=== PATIENT | male | born 1985 | race African-American/Black ===

== ENCOUNTER 2017-10-15 10:08 | Emergency (ER) | payer OTHER ==
[~2017-10-15] VITALS: Ht 180.3 cm; Wt 79.0 kg
[2017-10-15] MEDS ORDERED: NORCO (10:38)
[2017-10-15] MEDS ORDERED: SODIUM CHLORIDE 0.9% 1,000 ML IV ONE (12:18)
[2017-10-15] MEDS ORDERED: MORPHINE SULFATE 4 MG/ML CPJ (NOT FOR IM USE) IV STA (12:18)
[2017-10-15] MEDS ORDERED: FAMOTIDINE 20MG/2ML VIAL IV STA (12:18)
[2017-10-15 12:59] LABS: BASOPHILS % 0.4 % (0.0-2.0); EOSINOPHILS % 0.4 % (0.0-5.0); HEMATOCRIT. 41.6 % (42.0-52.0); LYMPHOCYTES % 19.2 % (20.0-50.0); MEAN CORPUSCULAR HEMOGLOBIN 32.7 pg (28.0-32.0); MEAN CORPUSCULAR VOLUME 96.9 fL (80.0-94.0); MEAN PLATELET VOLUME 9.2 fl (7.4-10.4); PLATELET 340 x1000/uL (130-400); RED BLOOD CELL COUNT 4.29 mill/uL (4.7-6.1); RED CELL DISTRIBUTION WIDTH 11.8 % (11.6-14.6)
[2017-10-15 13:00] VITALS: BP 167/100
[2017-10-15 13:06] LABS: CHLORIDE 103 mEq/L (98-107)
[2017-10-15 13:14] LABS: CARBON DIOXIDE 30 mEq/L (21-32)
[2017-10-15] MEDS ORDERED: ONDANSETRON HCL 4MG/2ML VIAL IV ONE (14:30)
== END 2017-10-15 16:39 | disposition home or self-care (01) ==
LOC: ER 11:02
DX: K76.0 Fatty (change of) liver, not elsewhere classified (principal); A60.00 Herpesviral infection of urogenital system, unspecified; R74.0 Nonspecific elevation of levels of transaminase and lactic acid dehydrogenase [LDH]; K85.90 Acute pancreatitis without necrosis or infection, unspecified; F10.10 Alcohol abuse, uncomplicated; Y90.9 Presence of alcohol in blood, level not specified
CPT/HCPCS: 36415; 76705; 80053; 83690; 85025; 96361; 96374; 96375; 99285; J2270; J2405; J3490; J7030

== ENCOUNTER 2018-12-10 08:18 | Inpatient (IN) | payer MEDICAID, OTHER ==
[~2018-12-10] VITALS: Ht 180.3 cm; Wt 76.2 kg
[2018-12-10] MEDS ORDERED: SODIUM CHLORIDE 0.9% 1,000 ML IV ONE (08:58)
[2018-12-10] MEDS ORDERED: KETOROLAC 30MG/ML VIAL IV STA (08:58)
[2018-12-10] MEDS ORDERED: ONDANSETRON HCL 4MG/2ML INJ IV STA (08:58)
[2018-12-10 09:38] LABS: CLARITY URINE CLEAR (CLEAR); COLOR URINE YELLOW (YELLOW); KETONES URINE NEGATIVE (NEGATIVE); LEUKOCYTE ESTERASE URINE NEGATIVE (NEGATIVE); NITRITE URINE NEGATIVE (NEGATIVE); OCCULT BLOOD URINE NEGATIVE (NEGATIVE); PH URINE 7.5 (4.5-8.0); PROTEIN URINE NEGATIVE (NEGATIVE); SPECIFIC GRAVITY URINE 1.012 (1.005-1.030); UROBILINOGEN URINE 0.2 E.U./dL (0.2-1.0)
[2018-12-10 09:39] LABS: BASOPHILS % 1.1 % (0.0-2.0); EOSINOPHILS % 6.3 % (0.0-5.0); HEMATOCRIT. 39.9 % (42.0-52.0); HEMOGLOBIN. 13.5 g/dL (14.0-18.0); LYMPHOCYTES % 32.9 % (20.0-50.0); MEAN CORPUSCULAR VOLUME 97.4 fL (80.0-94.0); MEAN PLATELET VOLUME 9.6 fl (7.4-10.4); MONOCYTES % 7.1 % (2.0-8.0); NEUTROPHILS % 52.6 % (40.0-76.0); PLATELET 278 x1000/uL (130-400); RED BLOOD CELL COUNT 4.09 mill/uL (4.7-6.1); RED CELL DISTRIBUTION WIDTH 11.9 % (11.6-14.6)
[2018-12-10 09:44] LABS: CHLORIDE 107 mEq/L (98-107)
[2018-12-10 09:47] LABS: ETHANOL BLOOD 76 mg/dL
[2018-12-10] MEDS ORDERED: IBUPROFEN 600MG TABLET PO PRN (11:00)
[2018-12-10 14:00] VITALS: BP 151/97
[2018-12-10] MEDS ORDERED: CLONIDINE 0.1MG TABLET PO PRN (15:45)
[2018-12-10] MEDS ORDERED: DOCUSATE SODIUM 100MG CAPSULE PO PRN (15:45)
[2018-12-10] MEDS ORDERED: ACETAMINOPHEN 325MG TABLET PO PRN (15:45)
[2018-12-10] MEDS ORDERED: ZOLPIDEM TARTRATE 5MG TABLET PO PRN (15:45)
[2018-12-10] MEDS ORDERED: IPRATROPIUM/ALBUTEROL 0.5-3(2.5)MG/3ML NEB INH PRN (15:45)
[2018-12-10] MEDS ORDERED: NITROGLYCERIN 0.4MG TABLET SL SL PRN (15:45)
[2018-12-10] MEDS ORDERED: LORAZEPAM 0.5MG TABLET PO PRN (15:45)
[2018-12-10] MEDS ORDERED: ONDANSETRON HCL 4MG/2ML INJ IV PRN (15:45)
[2018-12-10] MEDS ORDERED: GUAIFENESIN 200MG/10ML SUGAR FREE UDC PO PRN (15:45)
[2018-12-10] MEDS ORDERED: MAGNESIUM/ALUMINUM HYDROXIDE/SIMETHICONE 30ML UDC PO PRN (15:45)
[2018-12-10] MEDS ORDERED: SODIUM CHLORIDE 0.9% 1,000 ML IV SCH (16:05)
[2018-12-10] MEDS ORDERED: KCL 20MEQ/100ML PREMIX 100 ML IV NR (16:30)
[2018-12-10] MEDS ORDERED: MVI, ADULT NO.1 10 ML, FOLIC ACID 1 MG, THIAMINE HCL 100 MG in SODIUM CHLORIDE 0.9% 1,0... IV SCH ×4 (17:00)
[2018-12-10] MEDS: KETOROLAC 15MG/ML VIAL IV PRN ×2 (17:02→23:37)
[2018-12-10 20:15] VITALS: BP 143/99
[2018-12-10] MEDS: METOPROLOL TARTRATE 25MG TABLET PO SCH (21:25)
[2018-12-10 22:57] LABS: *AMPHETAMINES SCREEN URINE NEGATIVE (NEGATIVE)
[2018-12-10 22:58] LABS: *BARBITURATES SCREEN URINE NEGATIVE (NEGATIVE); *BENZODIAZEPINES SCREEN URINE PRESUMTIVE POSITIVE (NEGATIVE); *COCAINE SCREEN URINE NEGATIVE (NEGATIVE); METHADONE URINE SCREEN NEGATIVE (NEGATIVE); OPIATES URINE SCREEN NEGATIVE (NEGATIVE); PHENCYCLIDINE URINE SCREEN NEGATIVE (NEGATIVE)
[2018-12-10 22:59] LABS: CANNABINOID URINE SCREEN NEGATIVE (NEGATIVE)
[2018-12-11 04:00] VITALS: BP 140/85
[2018-12-11] MEDS: KETOROLAC 15MG/ML VIAL IV PRN ×2 (05:41→12:17)
[2018-12-11 07:46] LABS: BASOPHILS % 0.5 % (0.0-2.0); EOSINOPHILS % 5.6 % (0.0-5.0); HEMATOCRIT. 36.7 % (42.0-52.0); HEMOGLOBIN. 12.4 g/dL (14.0-18.0); LYMPHOCYTES % 24.9 % (20.0-50.0); MEAN CORPUSCULAR VOLUME 97.9 fL (80.0-94.0); MEAN PLATELET VOLUME 9.9 fl (7.4-10.4); MONOCYTES % 5.7 % (2.0-8.0); NEUTROPHILS % 63.3 % (40.0-76.0); PLATELET 257 x1000/uL (130-400); RED BLOOD CELL COUNT 3.75 mill/uL (4.7-6.1); RED CELL DISTRIBUTION WIDTH 11.9 % (11.6-14.6)
[2018-12-11 08:00] VITALS: BP 146/95
[2018-12-11 08:08] LABS: CHLORIDE 108 mEq/L (98-107)
[2018-12-11 08:14] LABS: AMYLASE 115 IU/L (25-115)
[2018-12-11] MEDS: METOPROLOL TARTRATE 25MG TABLET PO SCH (08:55)
[2018-12-11] MEDS ORDERED: PANTOPRAZOLE SODIUM 40 MG/VIAL IV SCH (09:00)
[2018-12-11 12:00] VITALS: BP 144/96
[2018-12-11 13:58] VITALS: BP 144/96
== END 2018-12-11 14:30 | disposition home or self-care (01) | DRG 282 ==
LOC: ER 08:18 → 6EST 11:02 → EDBEDREQ 11:09 → ENRESERV 11:38
PROVIDERS: ADMIT Internal Medicine; ATTEND Internal Medicine
DX: K85.20 Alcohol induced acute pancreatitis without necrosis or infection (principal); D64.9 Anemia, unspecified; E87.6 Hypokalemia; F10.20 Alcohol dependence, uncomplicated; I10 Essential (primary) hypertension
CPT/HCPCS: 36415; 76700; 80305; 80320; 82150; 93005; 96361; 96374; 96375; 99285; C9113; J1885; J2405; J3411; J3480; J3490; J7030; G0480

== ENCOUNTER 2019-02-24 16:24 | Emergency (ER) | payer MEDICAID ==
[~2019-02-24] VITALS: Ht 180.3 cm; Wt 75.0 kg
[2019-02-24] MEDS ORDERED: SODIUM CHLORIDE 0.9% 1,000 ML IV ONE (21:48)
[2019-02-24] MEDS ORDERED: MORPHINE SULFATE 4 MG/ML CPJ (NOT FOR IM USE) IV STA (21:48)
[2019-02-24] MEDS ORDERED: ONDANSETRON HCL 4MG/2ML INJ IV STA (21:48)
[2019-02-24] MEDS ORDERED: KETOROLAC 30MG/ML VIAL IV STA (21:48)
[2019-02-24 22:49] LABS: CHLORIDE 105 mEq/L (98-107); EOSINOPHILS % 2.6 % (0.0-5.0); HEMATOCRIT. 37.3 % (42.0-52.0); HEMOGLOBIN. 12.7 g/dL (14.0-18.0); LYMPHOCYTES % 33.9 % (20.0-50.0); MEAN CORPUSCULAR HEMOGLOBIN 32.6 pg (28.0-32.0); MEAN CORPUSCULAR VOLUME 95.9 fL (80.0-94.0); MEAN PLATELET VOLUME 9.2 fl (7.4-10.4); MONOCYTES % 6.5 % (2.0-8.0); PLATELET 285 x1000/uL (130-400); RED BLOOD CELL COUNT 3.89 mill/uL (4.7-6.1)
[2019-02-25] MEDS ORDERED: FENTANYL CITRATE/PF 50MCG/ML 2ML VIAL IV ONE (00:45)
[2019-02-25] MEDS ORDERED: CLONIDINE 0.2MG TABLET PO ONE (00:45)
[2019-02-25 04:22] VITALS: BP 131/88
== END 2019-02-25 04:22 | disposition home or self-care (01) ==
LOC: ER 16:24
DX: K52.9 Noninfective gastroenteritis and colitis, unspecified (principal); I10 Essential (primary) hypertension
CPT/HCPCS: 36415; 80053; 83690; 85025; 96361; 96374; 96375; 99283; J1885; J2270; J2405; J3010; J7030; Z7610

== ENCOUNTER 2019-04-09 16:15 | Emergency (ER) | payer MEDICAID ==
[~2019-04-09] VITALS: Ht 180.3 cm; Wt 74.0 kg
[2019-04-09] MEDS ORDERED: ONDANSETRON HCL 4MG/2ML INJ IV STA (23:05)
[2019-04-09] MEDS ORDERED: KETOROLAC 30MG/ML VIAL IV STA (23:05)
[2019-04-09] MEDS ORDERED: SODIUM CHLORIDE 0.9% 1,000 ML IV ONE (23:05)
[2019-04-09] MEDS ORDERED: LOPERAMIDE 2 MG/10 ML UDC PO ONE (23:15)
[2019-04-09 23:28] LABS: CHLORIDE 106 mEq/L (98-107)
[2019-04-09] MEDS ORDERED: LOPERAMIDE HCL 2MG CAPSULE PO NR (23:30)
[2019-04-09 23:34] LABS: BASOPHILS % 0.6 % (0.0-2.0); EOSINOPHILS % 0.9 % (0.0-5.0); HEMOGLOBIN. 13.6 g/dL (14.0-18.0); LYMPHOCYTES % 24.5 % (20.0-50.0); MEAN CORPUSCULAR HEMOGLOBIN 32.7 pg (28.0-32.0); MEAN CORPUSCULAR VOLUME 96.3 fL (80.0-94.0); MEAN PLATELET VOLUME 9.7 fl (7.4-10.4); MONOCYTES % 5.9 % (2.0-8.0); NEUTROPHILS % 68.1 % (40.0-76.0); PLATELET 313 x1000/uL (130-400); RED BLOOD CELL COUNT 4.15 mill/uL (4.7-6.1); RED CELL DISTRIBUTION WIDTH 12.3 % (11.6-14.6)
[2019-04-09 23:41] LABS: CLARITY URINE CLEAR (CLEAR); COLOR URINE YELLOW (YELLOW); KETONES URINE NEGATIVE (NEGATIVE); LEUKOCYTE ESTERASE URINE NEGATIVE (NEGATIVE); NITRITE URINE NEGATIVE (NEGATIVE); OCCULT BLOOD URINE NEGATIVE (NEGATIVE); PROTEIN URINE NEGATIVE (NEGATIVE); SPECIFIC GRAVITY URINE 1.029 (1.005-1.030); UROBILINOGEN URINE 0.2 E.U./dL (0.2-1.0)
[2019-04-10 01:56] VITALS: BP 156/107
== END 2019-04-10 02:03 | disposition home or self-care (01) ==
LOC: ER 16:15
DX: K52.9 Noninfective gastroenteritis and colitis, unspecified (principal); I10 Essential (primary) hypertension
CPT/HCPCS: 36415; 80053; 81003; 83690; 85025; 96361; 96374; 96375; 99283; J1885; J2405; J7030; Z7610

== ENCOUNTER 2019-09-10 08:59 | Emergency (ER) | payer MEDICAID ==
[~2019-09-10] VITALS: Ht 180.3 cm; Wt 75.0 kg
[2019-09-10] MEDS ORDERED: KETOROLAC 30MG/ML VIAL IV STA (11:03)
[2019-09-10] MEDS ORDERED: MORPHINE SULFATE 4 MG/ML CPJ (NOT FOR IM USE) IV STA (11:03)
[2019-09-10] MEDS ORDERED: FAMOTIDINE 20MG/2ML VIAL IV STA (11:03)
[2019-09-10] MEDS ORDERED: SODIUM CHLORIDE 0.9% 1,000 ML IV ONE (11:03)
[2019-09-10] MEDS ORDERED: ONDANSETRON HCL 4MG/2ML INJ IV STA (11:03)
[2019-09-10 11:33] LABS: BASOPHILS % 0.8 % (0.0-2.0); EOSINOPHILS % 0.2 % (0.0-5.0); HEMATOCRIT. 39.8 % (42.0-52.0); HEMOGLOBIN. 13.4 g/dL (14.0-18.0); LYMPHOCYTES % 18.7 % (20.0-50.0); MEAN CORPUSCULAR HEMOGLOBIN 32.1 pg (28.0-32.0); MEAN CORPUSCULAR VOLUME 94.9 fL (80.0-94.0); MEAN PLATELET VOLUME 9.8 fl (7.4-10.4); MONOCYTES % 5.5 % (2.0-8.0); NEUTROPHILS % 74.8 % (40.0-76.0); PLATELET 300 x1000/uL (130-400); RED BLOOD CELL COUNT 4.19 mill/uL (4.7-6.1); RED CELL DISTRIBUTION WIDTH 12.4 % (11.6-14.6)
[2019-09-10 11:40] LABS: CHLORIDE 103 mEq/L (98-107)
[2019-09-10 11:43] LABS: INR 1.1; PROTHROMBIN TIME 11.5 sec (9.6-11.0)
[2019-09-10 11:44] LABS: ETHANOL BLOOD < 10 mg/dL
[2019-09-10 12:14] LABS: CLARITY URINE CLEAR (CLEAR); COLOR URINE YELLOW (YELLOW); KETONES URINE NEGATIVE (NEGATIVE); LEUKOCYTE ESTERASE URINE NEGATIVE (NEGATIVE); NITRITE URINE NEGATIVE (NEGATIVE); OCCULT BLOOD URINE NEGATIVE (NEGATIVE); PH URINE 6.5 (4.5-8.0); PROTEIN URINE NEGATIVE (NEGATIVE); SPECIFIC GRAVITY URINE 1.026 (1.005-1.030); UROBILINOGEN URINE 0.2 E.U./dL (0.2-1.0)
[2019-09-10 13:00] LABS: *AMPHETAMINES SCREEN URINE NEGATIVE (NEGATIVE); *BARBITURATES SCREEN URINE NEGATIVE (NEGATIVE); *BENZODIAZEPINES SCREEN URINE PRESUMTIVE POSITIVE (NEGATIVE); *COCAINE SCREEN URINE NEGATIVE (NEGATIVE)
[2019-09-10 13:01] LABS: CANNABINOID URINE SCREEN NEGATIVE (NEGATIVE); METHADONE URINE SCREEN NEGATIVE (NEGATIVE); OPIATES URINE SCREEN NEGATIVE (NEGATIVE); PHENCYCLIDINE URINE SCREEN NEGATIVE (NEGATIVE)
[2019-09-10 16:22] VITALS: BP 151/99
== END 2019-09-10 16:26 | disposition home or self-care (01) ==
LOC: ER 08:59 → CANBEDREQ 16:46
DX: R10.13 Epigastric pain (principal); K86.1 Other chronic pancreatitis; F10.20 Alcohol dependence, uncomplicated; Y90.0 Blood alcohol level of less than 20 mg/100 ml; F17.290 Nicotine dependence, other tobacco product, uncomplicated; I10 Essential (primary) hypertension
CPT/HCPCS: 36415; 74177; 80053; 80305; 80320; 81003; 83690; 84484; 85025; 85610; 93005; 96361; 96374; 96375; 99284; J1885; J2270; J2405; J3490; J7030; G0480

== ENCOUNTER 2020-04-05 15:26 | Inpatient (IN) | payer MEDICAID ==
[~2020-04-05] VITALS: Ht 180.3 cm; Wt 74.8 kg
[2020-04-05] MEDS ORDERED: MORPHINE SULFATE 4 MG/ML CPJ (NOT FOR IM USE) IV STA (16:32)
[2020-04-05] MEDS ORDERED: SODIUM CHLORIDE 0.9% 1,000 ML IV ONE ×2 (16:32→19:25)
[2020-04-05] MEDS ORDERED: ONDANSETRON HCL 4MG/2ML INJ IV STA (16:32)
[2020-04-05 17:53] LABS: CHLORIDE 107 mEq/L (98-107)
[2020-04-05 17:54] LABS: BASOPHILS % 0.9 % (0.0-2.0); EOSINOPHILS % 0.6 % (0.0-5.0); HEMOGLOBIN. 14.2 g/dL (14.0-18.0); LYMPHOCYTES % 33.4 % (20.0-50.0); MEAN CORPUSCULAR HEMOGLOBIN 32.4 pg (28.0-32.0); MEAN CORPUSCULAR VOLUME 95.5 fL (80.0-94.0); MEAN PLATELET VOLUME 9.6 fl (7.4-10.4); MONOCYTES % 5.7 % (2.0-8.0); NEUTROPHILS % 59.4 % (40.0-76.0); PLATELET 340 x1000/uL (130-400); RED BLOOD CELL COUNT 4.39 mill/uL (4.7-6.1); RED CELL DISTRIBUTION WIDTH 12.3 % (11.6-14.6)
[2020-04-05 17:58] LABS: ETHANOL BLOOD < 10 mg/dL
[2020-04-05] MEDS ORDERED: KETOROLAC 30MG/ML VIAL IV ONE (18:30)
[2020-04-05] MEDS ORDERED: ONDANSETRON HCL 4MG/2ML INJ IV ONE (19:30)
[2020-04-05] MEDS ORDERED: MORPHINE SULFATE 4 MG/ML CPJ (NOT FOR IM USE) IV ONE (19:30)
[2020-04-05] MEDS ORDERED: ACETAMINOPHEN 650MG SUPP PR PRN (22:15)
[2020-04-05] MEDS: MORPHINE SULFATE 2 MG/ML CPJ (NOT FOR IM USE) IV PRN (23:49)
[2020-04-05] MEDS: ENALAPRIL 1.25MG/ML VIAL 1ML IV PRN (23:50)
[2020-04-05] MEDS: ONDANSETRON HCL 4MG/2ML INJ IV PRN (23:50)
[2020-04-05 23:57] LABS: CLARITY URINE CLEAR (CLEAR); COLOR URINE YELLOW (YELLOW); KETONES URINE NEGATIVE (NEGATIVE); LEUKOCYTE ESTERASE URINE NEGATIVE (NEGATIVE); NITRITE URINE NEGATIVE (NEGATIVE); OCCULT BLOOD URINE NEGATIVE (NEGATIVE); PROTEIN URINE NEGATIVE (NEGATIVE); SPECIFIC GRAVITY URINE 1.018 (1.005-1.030)
[2020-04-06 00:07] LABS: OPIATES URINE SCREEN PRESUMTIVE POSITIVE (NEGATIVE); PHENCYCLIDINE URINE SCREEN NEGATIVE (NEGATIVE)
[2020-04-06 00:08] LABS: *AMPHETAMINES SCREEN URINE NEGATIVE (NEGATIVE); *BARBITURATES SCREEN URINE NEGATIVE (NEGATIVE); *BENZODIAZEPINES SCREEN URINE NEGATIVE (NEGATIVE); *COCAINE SCREEN URINE NEGATIVE (NEGATIVE); CANNABINOID URINE SCREEN NEGATIVE (NEGATIVE); METHADONE URINE SCREEN NEGATIVE (NEGATIVE)
[2020-04-06] MEDS: DEXT 5%/0.45% NACL 1000ML 1,000 ML IV SCH ×2 (00:45→11:26)
[2020-04-06] MEDS: MORPHINE SULFATE 2 MG/ML CPJ (NOT FOR IM USE) IV PRN ×5 (04:33→20:57)
[2020-04-06 05:24] LABS: CHLORIDE 107 mEq/L (98-107)
[2020-04-06 05:27] LABS: BASOPHILS % 0.5 % (0.0-2.0); EOSINOPHILS % 1.6 % (0.0-5.0); HEMATOCRIT. 38.2 % (42.0-52.0); HEMOGLOBIN. 13.2 g/dL (14.0-18.0); LYMPHOCYTES % 32.7 % (20.0-50.0); MEAN CORPUSCULAR HEMOGLOBIN 32.8 pg (28.0-32.0); MEAN CORPUSCULAR VOLUME 95.1 fL (80.0-94.0); MEAN PLATELET VOLUME 9.5 fl (7.4-10.4); NEUTROPHILS % 59.2 % (40.0-76.0); PLATELET 290 x1000/uL (130-400); RED BLOOD CELL COUNT 4.01 mill/uL (4.7-6.1); RED CELL DISTRIBUTION WIDTH 11.9 % (11.6-14.6)
[2020-04-06] MEDS ORDERED: CLONIDINE HCL 0.2MG/24HR PATCH TD SCH (12:00)
[2020-04-06] MEDS ORDERED: POTASSIUM CHLORIDE INJ 40 MEQ in DEXT 5% WATER 500 ML IV NR (13:00)
[2020-04-06] MEDS: ENALAPRIL 1.25MG/ML VIAL 1ML IV PRN (18:13)
[2020-04-06 22:35] VITALS: BP 150/96
[2020-04-06] MEDS ORDERED: ENALAPRIL 1.25 MG in DEXTROSE 5% WATER 50 ML IV PRN (23:00)
[2020-04-07] VITALS: BP 150/96
[2020-04-07] MEDS: MORPHINE SULFATE 2 MG/ML CPJ (NOT FOR IM USE) IV PRN ×5 (01:11→21:16)
[2020-04-07] MEDS: DEXT 5%/0.45% NACL 1000ML 1,000 ML IV SCH ×2 (01:12→14:50)
[2020-04-07] MEDS: ONDANSETRON HCL 4MG/2ML INJ IV PRN ×3 (01:15→21:16)
[2020-04-07 04:00] VITALS: BP 148/90
[2020-04-07 08:00] VITALS: BP 136/91
[2020-04-07] MEDS ORDERED: CLON0.1T MT (09:19)
[2020-04-07 12:00] VITALS: BP 142/98
[2020-04-07] MEDS: BENAZEPRIL 10MG TABLET PO SCH (12:07)
[2020-04-07 16:00] VITALS: BP 117/87
[2020-04-07 20:00] VITALS: BP 119/74
[2020-04-08] VITALS: BP_SYST 105; BP_SYST 106; BP_DIAS 55; BP_DIAS 64
[2020-04-08] MEDS: MORPHINE SULFATE 2 MG/ML CPJ (NOT FOR IM USE) IV PRN ×2 (03:35→09:17)
[2020-04-08] MEDS: DEXT 5%/0.45% NACL 1000ML 1,000 ML IV SCH ×2 (03:36→03:48)
[2020-04-08 04:00] VITALS: BP 106/64
[2020-04-08 07:23] LABS: CHLORIDE 104 mEq/L (98-107)
[2020-04-08 08:00] VITALS: BP 109/71
[2020-04-08] MEDS: BENAZEPRIL 10MG TABLET PO SCH (09:16)
[2020-04-08 10:22] VITALS: BP 112/77
== END 2020-04-08 14:00 | disposition home or self-care (01) | DRG 282 ==
LOC: ER 15:26 → MICUSO 20:43 → 6EST 04-06 22:52
PROVIDERS: ADMIT Hospitalist; ATTEND Hospitalist
DX: K85.20 Alcohol induced acute pancreatitis without necrosis or infection (principal); I10 Essential (primary) hypertension; F10.20 Alcohol dependence, uncomplicated; K86.1 Other chronic pancreatitis; K86.0 Alcohol-induced chronic pancreatitis
CPT/HCPCS: 36415; 71045; 74176; 80053; 80305; 80320; 81003; 83735; 85025; 99285; J1885; J2270; J2405; J3480; J3490; J7030; J7060; G0480

== ENCOUNTER 2020-05-05 15:18 | Inpatient (IN) | payer MEDICAID ==
[~2020-05-05] VITALS: Ht 180.3 cm; Wt 78.5 kg
[~2020-05-05 15:18] MED LIST: CLON0.1T MT
[2020-05-05] MEDS ORDERED: ONDANSETRON 4MG ODT PO ONE (17:00)
[2020-05-05] MEDS ORDERED: FAMOTIDINE 20MG/2ML VIAL IV STA (17:12)
[2020-05-05] MEDS ORDERED: SODIUM CHLORIDE 0.9% 1,000 ML IV ONE ×2 (17:12→18:15)
[2020-05-05] MEDS ORDERED: ONDANSETRON 4MG ODT PO STA (17:12)
[2020-05-05] MEDS ORDERED: KETOROLAC 30MG/ML VIAL IV STA (17:12)
[2020-05-05 17:29] LABS: CHLORIDE 104 mEq/L (98-107)
[2020-05-05 17:32] LABS: BASOPHILS % 0.4 % (0.0-2.0); EOSINOPHILS % 0.1 % (0.0-5.0); HEMATOCRIT. 42.7 % (42.0-52.0); HEMOGLOBIN. 14.3 g/dL (14.0-18.0); LYMPHOCYTES % 18.7 % (20.0-50.0); MEAN CORPUSCULAR VOLUME 95.1 fL (80.0-94.0); MEAN PLATELET VOLUME 9.6 fl (7.4-10.4); MONOCYTES % 4.5 % (2.0-8.0); NEUTROPHILS % 76.3 % (40.0-76.0); PLATELET 335 x1000/uL (130-400); RED BLOOD CELL COUNT 4.48 mill/uL (4.7-6.1); RED CELL DISTRIBUTION WIDTH 12.2 % (11.6-14.6)
[2020-05-05 17:33] LABS: INR 1.1; PROTHROMBIN TIME 11.6 sec (9.6-11.0)
[2020-05-05 17:34] LABS: ETHANOL BLOOD 11 mg/dL
[2020-05-05 17:48] LABS: CLARITY URINE CLEAR (CLEAR); COLOR URINE YELLOW (YELLOW); KETONES URINE NEGATIVE (NEGATIVE); LEUKOCYTE ESTERASE URINE NEGATIVE (NEGATIVE); NITRITE URINE NEGATIVE (NEGATIVE); OCCULT BLOOD URINE NEGATIVE (NEGATIVE); PROTEIN URINE NEGATIVE (NEGATIVE); SPECIFIC GRAVITY URINE 1.023 (1.005-1.030); UROBILINOGEN URINE 0.2 E.U./dL (0.2-1.0)
[2020-05-05] MEDS ORDERED: MORPHINE SULFATE 4 MG/ML CPJ (NOT FOR IM USE) IV ONE (18:15)
[2020-05-05] MEDS: MORPHINE SULFATE 2 MG/ML CPJ (NOT FOR IM USE) IV PRN (20:11)
[2020-05-05] MEDS ORDERED: HYDRALAZINE 20MG/ML VIAL IV PRN (20:15)
[2020-05-06] VITALS: BP_SYST 151; BP_SYST 157; BP_DIAS 75; BP_DIAS 95
[2020-05-06] MEDS: MORPHINE SULFATE 2 MG/ML CPJ (NOT FOR IM USE) IV PRN ×6 (01:11→23:01)
[2020-05-06] MEDS: DEXT 5%/0.9% NACL KCL 20MEQ/L 1,000 ML IV SCH ×3 (03:04→18:32)
[2020-05-06] MEDS: ONDANSETRON HCL 4MG/2ML INJ IV PRN ×4 (03:24→20:37)
[2020-05-06 08:00] VITALS: BP 155/94
[2020-05-06] MEDS: ENOXAPARIN 40MG/0.4ML SYR SUBCUT SCH (09:00)
[2020-05-06 09:50] LABS: HEMATOCRIT 43.1 % (42.0-52.0); HEMOGLOBIN 14.6 g/dL (14.0-18.0); MEAN CORPUSCULAR HEMOGLOBIN 31.8 pg (28.0-32.0); MEAN CORPUSCULAR VOLUME 94.2 fL (80.0-94.0); PLATELET 308 x1000/uL (130-400); RED BLOOD CELL COUNT 4.58 mill/uL (4.7-6.1)
[2020-05-06 09:59] LABS: CHLORIDE 106 mEq/L (98-107)
[2020-05-06 10:05] LABS: AMYLASE 171 IU/L (25-115)
[2020-05-06 12:00] VITALS: BP 160/102
[2020-05-06] MEDS: CLONIDINE 0.1MG TABLET PO PRN (14:24)
[2020-05-06 16:00] VITALS: BP 143/96
[2020-05-06 20:00] VITALS: BP 149/101
[2020-05-06] MEDS: CLONIDINE 0.1MG TABLET PO SCH (20:37)
[2020-05-07] VITALS (7 sets, daily range): BP systolic 127–162; BP diastolic 71–99
[2020-05-07] MEDS: DEXT 5%/0.9% NACL KCL 20MEQ/L 1,000 ML IV SCH ×3 (03:01→18:37)
[2020-05-07] MEDS: MORPHINE SULFATE 2 MG/ML CPJ (NOT FOR IM USE) IV PRN ×5 (03:01→21:30)
[2020-05-07] MEDS: ONDANSETRON HCL 4MG/2ML INJ IV PRN ×3 (03:01→21:30)
[2020-05-07 07:23] LABS: BASOPHILS % 0.5 % (0.0-2.0); EOSINOPHILS % 5.7 % (0.0-5.0); HEMATOCRIT. 37.8 % (42.0-52.0); HEMOGLOBIN. 12.9 g/dL (14.0-18.0); LYMPHOCYTES % 26.9 % (20.0-50.0); MEAN CORPUSCULAR HEMOGLOBIN 32.2 pg (28.0-32.0); MEAN CORPUSCULAR VOLUME 93.9 fL (80.0-94.0); MEAN PLATELET VOLUME 9.5 fl (7.4-10.4); MONOCYTES % 6.6 % (2.0-8.0); NEUTROPHILS % 60.3 % (40.0-76.0); PLATELET 258 x1000/uL (130-400); RED BLOOD CELL COUNT 4.02 mill/uL (4.7-6.1); RED CELL DISTRIBUTION WIDTH 11.8 % (11.6-14.6)
[2020-05-07 07:24] LABS: CHLORIDE 106 mEq/L (98-107)
[2020-05-07 07:27] LABS: AMYLASE 128 IU/L (25-115)
[2020-05-07] MEDS: CLONIDINE 0.1MG TABLET PO PRN (08:35)
[2020-05-07] MEDS: ENOXAPARIN 40MG/0.4ML SYR SUBCUT SCH (08:35)
[2020-05-07] MEDS: CLONIDINE 0.1MG TABLET PO SCH (21:29)
[2020-05-08] VITALS: BP 127/84
[2020-05-08] MEDS: MORPHINE SULFATE 2 MG/ML CPJ (NOT FOR IM USE) IV PRN ×4 (01:38→13:39)
[2020-05-08] MEDS: DEXT 5%/0.9% NACL KCL 20MEQ/L 1,000 ML IV SCH (02:03)
[2020-05-08 04:00] VITALS: BP 145/86
[2020-05-08] MEDS: ONDANSETRON HCL 4MG/2ML INJ IV PRN ×2 (05:42→13:39)
[2020-05-08 06:31] LABS: BASOPHILS % 0.5 % (0.0-2.0); EOSINOPHILS % 5.2 % (0.0-5.0); HEMATOCRIT. 37.1 % (42.0-52.0); HEMOGLOBIN. 12.6 g/dL (14.0-18.0); LYMPHOCYTES % 29.6 % (20.0-50.0); MEAN CORPUSCULAR HEMOGLOBIN 32.2 pg (28.0-32.0); MEAN CORPUSCULAR VOLUME 94.4 fL (80.0-94.0); MEAN PLATELET VOLUME 10.1 fl (7.4-10.4); MONOCYTES % 7.2 % (2.0-8.0); NEUTROPHILS % 57.5 % (40.0-76.0); PLATELET 241 x1000/uL (130-400); RED BLOOD CELL COUNT 3.93 mill/uL (4.7-6.1); RED CELL DISTRIBUTION WIDTH 11.8 % (11.6-14.6)
[2020-05-08 07:06] LABS: CHLORIDE 106 mEq/L (98-107)
[2020-05-08 07:15] LABS: AMYLASE 87 IU/L (25-115)
[2020-05-08 08:00] VITALS: BP 138/84
[2020-05-08] MEDS: ENOXAPARIN 40MG/0.4ML SYR SUBCUT SCH (08:24)
[2020-05-08 12:00] VITALS: BP 142/91
[2020-05-08 14:07] VITALS: BP 142/91
== END 2020-05-08 14:40 | disposition home or self-care (01) | DRG 282 ==
LOC: ER 15:25 → 6EST 19:03 → EDBEDREQ 19:05 → EDBEDREQTM 19:05 → ENRESERV 22:00
PROVIDERS: ADMIT Internal Medicine; ATTEND Internal Medicine
DX: K85.20 Alcohol induced acute pancreatitis without necrosis or infection (principal); E87.2 Acidosis; F14.10 Cocaine abuse, uncomplicated; F12.10 Cannabis abuse, uncomplicated; I10 Essential (primary) hypertension; Z79.899 Other long term (current) drug therapy
CPT/HCPCS: 36415; 71045; 74176; 80048; 80053; 80076; 80320; 81003; 82150; 82247; 82248; 83605; 83735; 84100; 85025; 85027; 93005; 93970; 96374; 99285; J0360; J1650; J1885; J2270; J2405; J3490; J7030; Q0162; G0480

== ENCOUNTER 2020-06-12 14:30 | Emergency (ER) | payer MEDICAID ==
[~2020-06-12] VITALS: Ht 180.3 cm; Wt 77.0 kg
[2020-06-12] MEDS ORDERED: ONDANSETRON HCL 4MG/2ML INJ IV STA (15:30)
[2020-06-12] MEDS ORDERED: FAMOTIDINE 20MG/2ML VIAL IV STA (15:30)
[2020-06-12] MEDS ORDERED: SODIUM CHLORIDE 0.9% 1,000 ML IV ONE (15:30)
[2020-06-12] MEDS ORDERED: MORPHINE SULFATE 4 MG/ML CPJ (NOT FOR IM USE) IV STA (15:30)
[2020-06-12 16:02] LABS: BASOPHILS % 0.7 % (0.0-2.0); EOSINOPHILS % 0.1 % (0.0-5.0); HEMATOCRIT. 42.6 % (42.0-52.0); HEMOGLOBIN. 14.2 g/dL (14.0-18.0); LYMPHOCYTES % 19.9 % (20.0-50.0); MEAN CORPUSCULAR HEMOGLOBIN 31.7 pg (28.0-32.0); MEAN PLATELET VOLUME 9.5 fl (7.4-10.4); NEUTROPHILS % 75.3 % (40.0-76.0); PLATELET 267 x1000/uL (130-400); RED BLOOD CELL COUNT 4.48 mill/uL (4.7-6.1); RED CELL DISTRIBUTION WIDTH 12.5 % (11.6-14.6)
[2020-06-12 16:04] LABS: COLOR URINE DK YELLOW (YELLOW); KETONES URINE 1+ (NEGATIVE); LEUKOCYTE ESTERASE URINE NEGATIVE (NEGATIVE); NITRITE URINE NEGATIVE (NEGATIVE); OCCULT BLOOD URINE NEGATIVE (NEGATIVE); PH URINE 5.5 (4.5-8.0); PROTEIN URINE TRACE (NEGATIVE); SPECIFIC GRAVITY URINE 1.029 (1.005-1.030); UROBILINOGEN URINE 0.2 E.U./dL (0.2-1.0)
[2020-06-12 16:05] LABS: CHLORIDE 104 mEq/L (98-107)
[2020-06-12 16:10] LABS: CLARITY URINE HAZY (CLEAR)
[2020-06-12] MEDS ORDERED: KETOROLAC 30MG/ML VIAL IV ONE (17:15)
[2020-06-12] MEDS ORDERED: MAGNESIUM/ALUMINUM HYDROXIDE/SIMETHICONE 30ML UDC PO STA (18:02)
[2020-06-12] MEDS ORDERED: VISCOUS LIDOCAINE 2% 15 ML UDC PO STA (18:02)
[2020-06-12] MEDS ORDERED: LORAZEPAM 1MG TABLET PO ONE (19:00)
[2020-06-12 19:58] VITALS: BP 179/106
== END 2020-06-12 21:25 | disposition home or self-care (01) ==
LOC: ER 14:50
DX: F10.239 Alcohol dependence with withdrawal, unspecified (principal); K29.20 Alcoholic gastritis without bleeding; Y90.9 Presence of alcohol in blood, level not specified; I10 Essential (primary) hypertension; D72.829 Elevated white blood cell count, unspecified; Z87.19 Personal history of other diseases of the digestive system
CPT/HCPCS: 36415; 71045; 80053; 81003; 82962; 83690; 84484; 85025; 93005; 96361; 96374; 96375; 99285; J1885; J2270; J2405; J3490; J7030

== ENCOUNTER 2020-07-16 14:58 | Emergency (ER) | payer MEDICAID ==
[~2020-07-16] VITALS: Ht 180.3 cm; Wt 80.0 kg
[2020-07-16] MEDS ORDERED: ONDANSETRON HCL 4MG/2ML INJ IV STA (16:13)
[2020-07-16] MEDS ORDERED: MAGNESIUM/ALUMINUM HYDROXIDE/SIMETHICONE 30ML UDC PO STA (16:13)
[2020-07-16] MEDS ORDERED: FAMOTIDINE 20MG/2ML VIAL IV STA (16:13)
[2020-07-16] MEDS ORDERED: SODIUM CHLORIDE 0.9% 1,000 ML IV ONE (16:15)
[2020-07-16 17:28] LABS: BASOPHILS % 1.2 % (0.0-2.0); EOSINOPHILS % 0.7 % (0.0-5.0); HEMATOCRIT. 38.7 % (42.0-52.0); HEMOGLOBIN. 13.2 g/dL (14.0-18.0); LYMPHOCYTES % 27.5 % (20.0-50.0); MEAN CORPUSCULAR HEMOGLOBIN 31.7 pg (28.0-32.0); MEAN CORPUSCULAR VOLUME 92.8 fL (80.0-94.0); MEAN PLATELET VOLUME 9.6 fl (7.4-10.4); MONOCYTES % 6.7 % (2.0-8.0); NEUTROPHILS % 63.9 % (40.0-76.0); PLATELET 305 x1000/uL (130-400); RED BLOOD CELL COUNT 4.17 mill/uL (4.7-6.1); RED CELL DISTRIBUTION WIDTH 12.2 % (11.6-14.6)
[2020-07-16 17:38] LABS: CHLORIDE 107 mEq/L (98-107)
[2020-07-16 17:45] LABS: ETHANOL BLOOD < 10 mg/dL
[2020-07-16] MEDS ORDERED: POTASSIUM CHLORIDE 20MEQ TABLET SR PO NR (18:00)
[2020-07-16 18:08] LABS: CLARITY URINE CLOUDY (CLEAR); COLOR URINE YELLOW (YELLOW); KETONES URINE TRACE (NEGATIVE); LEUKOCYTE ESTERASE URINE NEGATIVE (NEGATIVE); NITRITE URINE NEGATIVE (NEGATIVE); OCCULT BLOOD URINE NEGATIVE (NEGATIVE); PROTEIN URINE TRACE (NEGATIVE); SPECIFIC GRAVITY URINE 1.027 (1.005-1.030)
[2020-07-16 18:24] LABS: *AMPHETAMINES SCREEN URINE NEGATIVE (NEGATIVE); *BARBITURATES SCREEN URINE NEGATIVE (NEGATIVE)
[2020-07-16 18:25] LABS: *BENZODIAZEPINES SCREEN URINE NEGATIVE (NEGATIVE); *COCAINE SCREEN URINE NEGATIVE (NEGATIVE); CANNABINOID URINE SCREEN NEGATIVE (NEGATIVE); METHADONE URINE SCREEN NEGATIVE (NEGATIVE); OPIATES URINE SCREEN NEGATIVE (NEGATIVE); PHENCYCLIDINE URINE SCREEN NEGATIVE (NEGATIVE)
[2020-07-16] MEDS ORDERED: DICYCLOMINE HCL 10MG CAPSULE PO ONE (19:00)
[2020-07-16] MEDS ORDERED: KETOROLAC 15MG/ML VIAL IV ONE (20:00)
[2020-07-16] MEDS ORDERED: SUCRALFATE 1 G/10 ML UDC PO SCH (21:00)
[2020-07-16 22:00] VITALS: BP 139/90
== END 2020-07-16 22:00 | disposition home or self-care (01) ==
LOC: ER 14:58
DX: R10.13 Epigastric pain (principal); I10 Essential (primary) hypertension; E87.6 Hypokalemia; F17.290 Nicotine dependence, other tobacco product, uncomplicated; F12.10 Cannabis abuse, uncomplicated
CPT/HCPCS: 36415; 71045; 76705; 80053; 80305; 80320; 81003; 83690; 84484; 85025; 93005; 96361; 96374; 96375; 99285; J1885; J2405; J3490; J7030; G0480

== ENCOUNTER 2020-08-17 11:38 | Emergency (ER) | payer MEDICAID ==
[~2020-08-17] VITALS: Ht 180.3 cm; Wt 82.0 kg
[~2020-08-17 11:38] MED LIST changes: +AMLO10TA80 MT; +FOLI-43 MT; +MULT1TAB67 MT; +PANT40TA4 MT; +THIA100T88 MT
[2020-08-17] MEDS ORDERED: ONDANSETRON HCL 4MG/2ML INJ IV STA ×2 (12:34→15:06)
[2020-08-17] MEDS ORDERED: MORPHINE SULFATE 4 MG/ML CPJ (NOT FOR IM USE) IV STA (12:34)
[2020-08-17] MEDS ORDERED: ENOXAPARIN 80MG/0.8ML SYR SUBCUT NR (12:45)
[2020-08-17] MEDS ORDERED: ENOXAPARIN 100MG/ML SYR SUBCUT ONE (12:45)
[2020-08-17] MEDS ORDERED: SODIUM CHLORIDE 0.9% 1,000 ML IV ONE (12:45)
[2020-08-17 13:06] LABS: BASOPHILS % 0.9 % (0.0-2.0); EOSINOPHILS % 1.5 % (0.0-5.0); HEMATOCRIT. 44.2 % (42.0-52.0); HEMOGLOBIN. 14.9 g/dL (14.0-18.0); LYMPHOCYTES % 31.9 % (20.0-50.0); MEAN CORPUSCULAR HEMOGLOBIN 31.1 pg (28.0-32.0); MEAN CORPUSCULAR VOLUME 92.5 fL (80.0-94.0); MEAN PLATELET VOLUME 9.9 fl (7.4-10.4); MONOCYTES % 8.7 % (2.0-8.0); PLATELET 311 x1000/uL (130-400); RED BLOOD CELL COUNT 4.78 mill/uL (4.7-6.1); RED CELL DISTRIBUTION WIDTH 12.2 % (11.6-14.6)
[2020-08-17 13:07] LABS: CLARITY URINE CLEAR (CLEAR); COLOR URINE YELLOW (YELLOW); KETONES URINE NEGATIVE (NEGATIVE); LEUKOCYTE ESTERASE URINE NEGATIVE (NEGATIVE); NITRITE URINE NEGATIVE (NEGATIVE); OCCULT BLOOD URINE NEGATIVE (NEGATIVE); PH URINE >=9.0 (4.5-8.0); PROTEIN URINE TRACE (NEGATIVE); SPECIFIC GRAVITY URINE 1.024 (1.005-1.030); UROBILINOGEN URINE 0.2 E.U./dL (0.2-1.0)
[2020-08-17 13:11] LABS: CHLORIDE 101 mEq/L (98-107)
[2020-08-17 13:15] LABS: PROTHROMBIN TIME 10.6 sec (9.6-11.0)
[2020-08-17 13:30] LABS: *AMPHETAMINES SCREEN URINE NEGATIVE (NEGATIVE); *BARBITURATES SCREEN URINE NEGATIVE (NEGATIVE); *BENZODIAZEPINES SCREEN URINE PRESUMTIVE POSITIVE (NEGATIVE); *COCAINE SCREEN URINE NEGATIVE (NEGATIVE); METHADONE URINE SCREEN NEGATIVE (NEGATIVE)
[2020-08-17 13:31] LABS: CANNABINOID URINE SCREEN NEGATIVE (NEGATIVE); OPIATES URINE SCREEN NEGATIVE (NEGATIVE); PHENCYCLIDINE URINE SCREEN NEGATIVE (NEGATIVE)
[2020-08-17 13:54] LABS: ETHANOL BLOOD 21 mg/dL
[2020-08-17] MEDS ORDERED: KETOROLAC 30MG/ML VIAL IV STA (15:06)
[2020-08-17 15:35] VITALS: BP 164/107
== END 2020-08-17 15:38 | disposition home or self-care (01) ==
LOC: ER 11:38
DX: R10.13 Epigastric pain (principal); K86.1 Other chronic pancreatitis; F17.210 Nicotine dependence, cigarettes, uncomplicated; I10 Essential (primary) hypertension; F10.21 Alcohol dependence, in remission; Y90.1 Blood alcohol level of 20-39 mg/100 ml; Z71.6 Tobacco abuse counseling
CPT/HCPCS: 36415; 71045; 80053; 80305; 80320; 81003; 83690; 85025; 85610; 93005; 96361; 96374; 96375; 96376; 99285; J1885; J2270; J2405; J7030; J1650; G0480

== ENCOUNTER 2023-10-07 05:13 | Emergency (ER) | payer MEDICAID ==
[~2023-10-07] VITALS: Ht 180.3 cm; Wt 79.5 kg
[~2023-10-07 05:13] MED LIST changes: +MULT-622 MT; -MULT1TAB67 MT; -PANT40TA4 MT; +PANT40TA51 MT
[2023-10-07 05:38] VITALS: O2SAT 98
[2023-10-07 05:56] LABS: CLARITY URINE CLEAR (CLEAR); COLOR URINE YELLOW (YELLOW); GLUCOSE URINE NEGATIVE (NEGATIVE); KETONES URINE NEGATIVE (NEGATIVE); LEUKOCYTE ESTERASE URINE NEGATIVE (NEGATIVE); NITRITE URINE NEGATIVE (NEGATIVE); OCCULT BLOOD URINE NEGATIVE (NEGATIVE); PH URINE 7.5 (4.5-8.0); PROTEIN URINE NEGATIVE (NEGATIVE); SPECIFIC GRAVITY URINE 1.018 (1.005-1.030)
[2023-10-07 06:16] LABS: EOSINOPHILS % 0.2 % (0.0-5.0); HEMATOCRIT. 40.7 % (42.0-52.0); MEAN CORPUSCULAR HEMOGLOBIN 31.3 pg (28.0-32.0); MEAN CORPUSCULAR HGB CONC 34.4 g/dL (31.0-37.0); MEAN PLATELET VOLUME 9.7 fl (7.4-10.4); MONOCYTES % 3.8 % (2.0-8.0); PLATELET 264 x1000/uL (130-400); RED BLOOD CELL COUNT 4.47 mill/uL (4.7-6.1); RED CELL DISTRIBUTION WIDTH 12.3 % (11.6-14.6); WHITE BLOOD COUNT 7.5 x1000/uL (4.5-11.0)
[2023-10-07 06:27] LABS: ALANINE AMINOTRANSFERASE 21 IU/L (10-49); ALBUMIN 3.9 g/dL (3.2-4.8); ASPARTATE AMINOTRANSFERASE 23 IU/L (<34); BILIRUBIN TOTAL 0.8 mg/dL (0.1-1.0); CALCIUM 7.9 mg/dL (8.7-10.4); CARBON DIOXIDE 25 mEq/L (21-32); CHLORIDE 104 mEq/L (98-107); CREATININE 0.8 mg/dL (0.6-1.3); GLUCOSE 109 mg/dL (70-105); POTASSIUM 3.5 mEq/L (3.5-5.1); PROTEIN TOTAL 6.9 g/dL (6.0-8.3); SODIUM 140 mEq/L (136-145); UREA NITROGEN BLOOD 12 mg/dL (9-23)
[2023-10-07] MEDS ORDERED: KETOROLAC 60MG/2ML VIAL IM STA (07:19)
[2023-10-07] MEDS ORDERED: ONDANSETRON 4MG ODT PO STA (07:19)
[2023-10-07] MEDS ORDERED: MAG-55 MT (09:06)
[2023-10-07] MEDS ORDERED: FAMO-135 MT (09:06)
[2023-10-07 09:20] VITALS: BP 158/105; PULSE 64; RESP 18; TEMP 97.9
== END 2023-10-07 09:21 | disposition home or self-care (01) ==
LOC: ER 05:13
DX: R10.13 Epigastric pain (principal); I10 Essential (primary) hypertension
CPT/HCPCS: 99285; 74176; 80053; 81003; 83690; 85025; 36415; 96372; Q0162; J1885